=== PATIENT | male | born 1955 | race Hispanic/Latino ===

== ENCOUNTER 2018-06-08 11:02 | Emergency (ER) | payer OTHER ==
[2018-06-08] MEDS ORDERED: Lidocaine 1% 20 ML MDV ONE (11:17)
[2018-06-08] MEDS ORDERED: Adacel (T-DAP) 0.5 ML SYRINGE ONE (11:17)
[2018-06-08] MEDS ORDERED: Bacitracin Zinc 1 Packet ONE (11:17)
[2018-06-08] MEDS ORDERED: Cephalexin 500 MG CAP ONE (11:17)
== END 2018-06-08 12:05 | disposition home or self-care (01) ==
LOC: MADERS 11:02
DX: S61.210A Laceration without foreign body of right index finger without damage to nail, initial encounter (principal); X58.XXXA Exposure to other specified factors, initial encounter
CPT/HCPCS: 12001; 90471; 90715; J2001